=== PATIENT | female | born 1960 | race Caucasian/White ===

== ENCOUNTER 2020-01-22 19:00 | Emergency (ER) | payer OTHER ==
[~2020-01-22] VITALS: Ht 182.9 cm; Wt 93.4 kg
[2020-01-22] MEDS ORDERED: COZAAR100 MG (19:37)
[2020-01-22] MEDS ORDERED: [UNRECOGNIZED DRUG - OTHER] (19:38)
[2020-01-22] MEDS ORDERED: CRESTOR10 MG (19:38)
[2020-01-22] MEDS ORDERED: DOK100 MG (19:38)
[2020-01-22] MEDS ORDERED: OMEPRAZOLE20 MG (19:39)
[2020-01-22] MEDS ORDERED: HORIZANT300 MG (19:42)
== END 2020-01-22 22:40 | disposition home or self-care (01) ==
LOC: ER 19:00
DX: G89.18 Other acute postprocedural pain (principal)